=== PATIENT | female | born 1980 | race Caucasian/White ===

== ENCOUNTER 2018-02-03 10:05 | Emergency (ER) | payer OTHER ==
[~2018-02-03] VITALS: Ht 170.2 cm; Wt 109.8 kg
[2018-02-03 10:30] VITALS: Ht 170.2 cm; Wt 109.8 kg
[2018-02-03 12:19] LABS: BASOPHIL % 0.8 % (0-2); PLATELET COUNT 311 x10^3mcL (130-400)
[2018-02-03 12:20] LABS: RED CELL DISTRIBUTION WIDTH 16.5 % (11.5-14.5)
[2018-02-03 12:29] LABS: CALCIUM 8.2 mg/dL (8.5-10.1); CARBON DIOXIDE 29.7 mmol/L (21-32); CHLORIDE SERUM 104 mmol/L (98-107); CREATININE SERUM 0.9 mg/dL (0.6-1.0); GFR1 > 60 mL/min; GLUCOSE SERUM 91 mg/dL (74-106); POTASSIUM SERUM 4.4 mmol/L (3.5-5.1); SODIUM SERUM 135 mmol/L (136-145)
[2018-02-03 12:34] LABS: ALKALINE PHOSPHATASE 124 U/L (46-116); ALT/SGPT 15 U/L (14-59); AST/SGOT 15 U/L (15-37); BILIRUBIN TOTAL 0.1 mg/dL (0.20-1.00)
[2018-02-03 13:17] LABS: microscopic required? NO
[2018-02-03 13:26] LABS: UA SPECIFIC GRAVITY 1.025 (1.005-1.035); urine erythrocyte NEGATIVE (NEGATIVE)
[2018-02-03 14:01] VITALS: BP 120/69
== END 2018-02-03 14:01 | disposition home or self-care (01) ==
LOC: ED 10:05
PROVIDERS: Emergency Medicine
DX: R60.0 Localized edema (principal); Z88.1 Allergy status to other antibiotic agents; Z85.528 Personal history of other malignant neoplasm of kidney
CPT/HCPCS: 36415; 83880; Q0092

== ENCOUNTER 2018-05-28 13:39 | Emergency (ER) | payer OTHER ==
[~2018-05-28] VITALS: Ht 170.2 cm; Wt 111.6 kg
[2018-05-28 14:01] VITALS: Ht 170.2 cm; Wt 111.6 kg
[2018-05-28 16:40] LABS: BASOPHIL % 1.1 % (0-2); PLATELET COUNT 340 x10^3mcL (130-400)
[2018-05-28 16:41] LABS: CALCIUM 8.3 mg/dL (8.5-10.1); CARBON DIOXIDE 24.2 mmol/L (21-32); CHLORIDE SERUM 104 mmol/L (98-107); CREATININE SERUM 0.9 mg/dL (0.6-1.0); GFR1 > 60 mL/min; GLUCOSE SERUM 138 mg/dL (74-106); POTASSIUM SERUM 4.6 mmol/L (3.5-5.1); SODIUM SERUM 138 mmol/L (136-145)
[2018-05-28 16:45] LABS: ALKALINE PHOSPHATASE 130 U/L (46-116); ALT/SGPT 14 U/L (14-59); AST/SGOT 24 U/L (15-37); LIPASE 146 IU/L (73-393); TOTAL PROTEIN, SERUM 7.3 g/dL (6.4-8.2)
[2018-05-28 16:48] LABS: RED CELL DISTRIBUTION WIDTH 15.2 % (11.5-14.5)
[2018-05-28 16:53] LABS: ALBUMIN 2.9 g/dL (3.4-5.0)
[2018-05-28 17:11] VITALS: BP 122/67
[2018-05-28 18:18] LABS: microscopic required? NO
[2018-05-28 18:20] LABS: BILIRUBIN TOTAL 0.1 mg/dL (0.20-1.00)
[2018-05-28 18:34] LABS: UA SPECIFIC GRAVITY >=1.030 (1.005-1.035); urine erythrocyte NEGATIVE (NEGATIVE)
== END 2018-05-28 18:17 | disposition home or self-care (01) ==
LOC: ED 13:39
PROVIDERS: Emergency Medicine
DX: T81.49XA Infection following a procedure, other surgical site, initial encounter (principal); R10.9 Unspecified abdominal pain; Z88.0 Allergy status to penicillin; Z88.6 Allergy status to analgesic agent; Z90.5 Acquired absence of kidney; Z98.890 Other specified postprocedural states
CPT/HCPCS: J2270; J2405; J7030